=== PATIENT | female | born 1980 | race American Indian/Alaskan Native ===

== ENCOUNTER 2016-08-03 09:05 | Emergency (ER) | payer OTHER ==
[2016-08-03] MEDS ORDERED: TESSALON PERLES PO ONE (13:54)
[2016-08-03] MEDS ORDERED: DUONEB 0.5 MG-3 MG/3 ML SOLN IH ONE (13:54)
--- NOTE | 2016-08-03 14:12 | Emergency Department Report ---
ED General Adult HPI - General Chief complaint: Upper Respiratory Infection Stated complaint: COUGH Time Seen by Provider: 08/03/16 13:48 Source: patient Mode of arrival: Ambulatory Limitations: No Limitations - History of Present Illness Initial comments: Pt c/o cough that started yesterday. PT states she has a hx of season allergies and at first she attributed her cough to the pollen. PT states when she woke up this am, her cough was worse and she actually coughed so hard, she made herself vomit. PT states she heard herself wheezing, so she came to the ED. PT denies any hx of asthma or COPD. PT does report tobacco abuse MD Complaint: cough Onset/Timin -: Gradual, days(s) Severity scale (0 -10): 10 (every where aches) Quality: aching Consistency: constant Associated Symptoms: headaches, nausea/vomiting (post tussive ). denies: fever/ chills Treatments Prior to Arrival: none - Related Data Allergies Allergy/AdvReac Type Severity Reaction Status Date / Time No Known Allergies Allergy Unverified 11/27/15 15:56 ED Review of Systems ROS: Stated complaint: COUGH Other details as noted in HPI Comment: All other systems reviewed and negative Constitutional: malaise. denies: fever ENT: throat pain (when she coughs ) Respiratory: cough, shortness of breath, wheezing Gastrointestinal: nausea, vomiting. denies: abdominal pain Genitourinary: denies: abnormal menses Musculoskeletal: myalgia ED Past Medical Hx - Past Medical History Previous Medical History?: Yes Hx Hypertension: Yes - Surgical History Past Surgical History?: Yes Additional Surgical History: C section - Social History Smoking Status: Current Every Day Smoker Substance Use Type: Alcohol ED Physical Exam - General Limitations: No Limitations General appearance: alert, in no apparent distress - Head Head exam: Present: atraumatic, normocephalic - Eye Eye exam: Present: normal appearance. Absent: conjunctival injection - ENT ENT exam: Present: normal orophraynx, mucous membranes moist, other (TMs not visualized yani due to cerumen impaction ) - Neck Neck exam: Present: normal inspection. Absent: lymphadenopathy - Respiratory Respiratory exam: Present: other (diminished yani, coughing during exam ). Absent: respiratory distress, chest wall tenderness, accessory muscle use - Cardiovascular Cardiovascular Exam: Present: normal rhythm, tachycardia - GI/Abdominal GI/Abdominal exam: Present: soft. Absent: tenderness - Extremities Exam Extremities exam: Present: normal inspection, full ROM - Back Exam Back exam: Present: normal inspection, full ROM. Absent: tenderness, CVA tenderness (R), CVA tenderness (L) - Neurological Exam Neurological exam: Present: alert, oriented X3 - Psychiatric Psychiatric exam: Present: normal affect, normal mood - Skin Skin exam: Present: warm, dry, intact ED Course Vital Signs 08/03/16 08/03/16 08/03/16 09:19 14:27 14:30 Temperature 99.4 F Pulse Rate 110 H Pulse Rate [ 110 H 112 H Anterior Bilateral Throughout] Respiratory 18 Rate Respiratory 18 18 Rate [Anterior Bilateral Throughout] Blood Pressure 140/93 O2 Sat by Pulse 99 Oximetry - Reevaluation(s) Reevaluation #1: 08/03/16 14:11 pt given verbal instructions on home care of cerumen impaction. PT aware of plan of care. No questions at this time. Reevaluation #2: 08/03/16 15:32 pt states she is feeling better after neb. pt states her coughing has decreased. PT's lung sounds improved. pt in no acute distress. PT aware of dx and plan of care. no questions at this time. - Pulse Oximetry Interpretation Digit-Finger Initial Pulse Oximetry Readin Actions Taken: none ED Medical Decision Making - Radiology Data Radiology results: image reviewed interpreted by me: CXR-NAP - Differential Diagnosis viral uri, allergic rhinitis, pna, bronchitis Critical Care Time: No Critical care attestation.: If time is entered above; I have spent that time in minutes in the direct care of this critically ill patient, excluding procedure time. ED Disposition Clinical Impression: Cough, Post-tussive emesis, Impacted cerumen of both ears Disposition: DISCHARGED TO HOME OR SELFCARE Is pt being admited?: No Does the pt Need Aspirin: No Condition: Stable Instructions: Secondhand Smoke Exposure in Children (ED), Acute Bronchitis (ED) , Acute Cough (ED) Additional Instructions: refrain from smoking. Return to ED if worsening or concerns Referrals: PRIMARY CARE, [Primary Care Provider] - 3-5 Days Time of Disposition: 15:34
[2016-08-03 15:44] VITALS: BP 136/91
--- NOTE | 2016-08-04 13:21 | XRay Report ---
ROUTINE CHEST, TWO VIEWS: PA and lateral views demonstrate the heart and mediastinal contour to be of normal size and shape. The lungs are clear and fully expanded and the soft tissues and bony structures are normal. IMPRESSION: Normal study.
== END 2016-08-03 15:42 | disposition home or self-care (01) ==
LOC: ED 09:05
DX: H61.23 Impacted cerumen, bilateral (principal); R05 Cough
CPT/HCPCS: 71020; 94640; 96372; 99283; J2930